=== PATIENT | female | born 1995 | race Caucasian/White ===

== ENCOUNTER 2018-06-25 18:32 | Emergency (ER) | payer MEDICAID ==
[~2018-06-25] VITALS: Ht 157.5 cm; Wt 90.3 kg
[2018-06-25 18:40] VITALS: BP 163/88
--- NOTE | 2018-06-25 19:30 | NUR ---
IRRIGATION ON LEFT EAR COMPLETE.
--- NOTE | 2018-06-25 19:41 | NUR ---
Patient discharged to home in stable condition. Written and verbal after care instructions given. Patient verbalizes understanding of instruction. Patient left facility on foot walking with steady gait.
== END 2018-06-25 19:43 | disposition home or self-care (01) ==
LOC: ER 18:39
DX: H61.22 Impacted cerumen, left ear (principal); H60.92 Unspecified otitis externa, left ear
CPT/HCPCS: 69210; 99283; A4606; Z7610